=== PATIENT | male | born 1940 | race Caucasian/White ===

== ENCOUNTER 2016-11-22 10:30 | Inpatient (IN) | payer MEDICARE, BC ==
[~2016-11-22] VITALS: Ht 170.2 cm; Wt 85.5 kg
[~2016-11-22 10:30] MED LIST: CHOL10003 PO; CLOP75TA22 PO; CRANBERRY PO; DONE10TA30 PO; LISI-167 PO; MEMA28CA PO; OMEG1CAP6 PO; PHOSPHATIDYL SERINE PO; SALM1CAP2 PO; TURM500C7 PO; VITA150T PO; VITAMIN E PO; ZINC PO; [UNRECOGNIZED DRUG - OTHER] PO; [UNRECOGNIZED DRUG - OTHER] PO
[2016-11-22] MEDS ORDERED: SUCCINYLCHOLINE 20 MG/ML, 10ML ONE (10:39)
[2016-11-22] MEDS ORDERED: PROPOFOL 10 MG/ML, 20ML ONE (10:39)
[2016-11-22] MEDS ORDERED: CEFAZOLIN 1,000 MG ONE (10:39)
[2016-11-22] MEDS ORDERED: DEXAMETHASONE 4 MG/ML, 1ML ONE (10:39)
[2016-11-22] MEDS ORDERED: PHENYLEPHRINE 10 MG/ML ONE (10:39)
[2016-11-22] MEDS ORDERED: ONDANSETRON 2MG/ML, 2ML ONE (10:39)
[2016-11-22] MEDS ORDERED: PROTAMINE SULFATE 10 MG/ML, 5ML ONE (11:03)
[2016-11-22] MEDS ORDERED: PAPAVERINE 30 MG/ML, 2ML ONE (11:03)
[2016-11-22] MEDS ORDERED: HEPARIN 1,000 UNITS/ML, 10ML ONE (11:04)
[2016-11-22] MEDS ORDERED: THROMBIN 20,000 UNIT VIAL TP ONE (11:04)
[2016-11-22] MEDS ORDERED: LIDOCAINE/PF 1%, 30ML ONE (11:04)
[2016-11-22] MEDS ORDERED: BACITRACIN 50,000 UNIT ONE (11:04)
[2016-11-22] MEDS ORDERED: BUPIVACAINE/PF-EPI 0.5% 1:200K ONE (11:04)
[2016-11-22] MEDS ORDERED: LACTATED RINGERS 1,000 ML IV SCH (11:31)
[2016-11-22 11:34] VITALS: BP 157/89
[2016-11-22] MEDS ORDERED: FENTANYL PF 250 MCG/5ML ONE (12:25)
[2016-11-22] MEDS ORDERED: ACETAMINOPHEN 325 MG TABLET PO PRN ×2 (13:30→18:30)
[2016-11-22] MEDS ORDERED: hydrALAzine 20 MG/ML, 1ML IV PRN ×2 (13:30→18:30)
[2016-11-22] MEDS ORDERED: MIDAZOLAM 1 MG/ML, 2ML IV PRN (13:30)
[2016-11-22] MEDS ORDERED: ONDANSETRON 2MG/ML, 2ML IVPush PRN (13:30)
[2016-11-22] MEDS ORDERED: FENTANYL PF 100 MCG/2ML IV PRN (13:30)
[2016-11-22] MEDS ORDERED: HYDROmorphone 1 MG/ML, 1ML IV PRN (13:30)
[2016-11-22] MEDS ORDERED: PROMETHAZINE 25 MG/ML, 1ML IV PRN (13:30)
[2016-11-22] MEDS ORDERED: LABETALOL 5MG/ML, 20ML IV PRN (13:30)
[2016-11-22] MEDS ORDERED: OXYcodone 5 MG/5 ML ORAL.SOL UDC PO PRN (13:30)
[2016-11-22] MEDS ORDERED: ALBUTEROL/IPRATROPIUM 2.5MG/0.5MG, 3 ML NPPB PRN (13:30)
[2016-11-22] MEDS ORDERED: LABETALOL 5MG/ML, 20ML ONE (14:38)
[2016-11-22 17:50] VITALS: BP 123/66
[2016-11-22] MEDS ORDERED: morphine SULFATE 10 MG/ML, 1ML IV PRN (18:30)
[2016-11-22] MEDS ORDERED: LABETALOL 5MG/ML, 20ML IVPush PRN (18:30)
[2016-11-22] MEDS ORDERED: HYDROcodone/APAP 5/325 TABLET PO PRN (18:30)
[2016-11-22] MEDS: LACTATED RINGERS 1,000 ML IV SCH (18:30)
[2016-11-22] MEDS ORDERED: DIAZEPAM 5 MG TABLET ONE (19:37)
[2016-11-22 20:00] VITALS: BP 113/61
[2016-11-22] MEDS: CEFAZOLIN PMX 2GM/100ML 100 ML IVPB SCH (20:10)
[2016-11-22] MEDS ORDERED: LISINOPRIL 10 MG TABLET PO SCH (21:00)
[2016-11-22] MEDS ORDERED: DONEPEZIL 10 MG TABLET PO SCH (21:00)
[2016-11-23 00:05] VITALS: BP 121/73
[2016-11-23 04:15] VITALS: BP 120/76
[2016-11-23] MEDS: CEFAZOLIN PMX 2GM/100ML 100 ML IVPB SCH (04:18)
[2016-11-23] MEDS: LACTATED RINGERS 1,000 ML IV SCH (04:21)
[2016-11-23] MEDS ORDERED: ASPIRIN 81 MG TABLET EC PO SCH (06:00)
[2016-11-23 07:15] VITALS: BP 128/71
[2016-11-23] MEDS ORDERED: VIT C HOMEMEDPO SCH (09:00)
[2016-11-23] MEDS ORDERED: SUPER B COMPLEX HOMEMEDPO SCH (09:00)
[2016-11-23] MEDS ORDERED: PHOSPHATIDYL SERINE HOMEMEDPO SCH (09:00)
[2016-11-23] MEDS ORDERED: VITAMIN B COMPLEX HOMEMEDPO SCH (09:00)
[2016-11-23] MEDS ORDERED: MEMANTINE 28 MG HOMEMEDPO SCH (09:00)
[2016-11-23] MEDS ORDERED: CLOPIDOGREL 75 MG TABLET PO SCH (09:00)
[2016-11-23] MEDS ORDERED: CHOLECALCIFEROL 1,000 UNIT TABLET PO SCH (09:00)
[2016-11-23 13:32] VITALS: BP 124/69
[2016-11-23] MEDS ORDERED: HYDR-3240 PO (14:22)
== END 2016-11-23 14:50 | disposition home or self-care (01) | DRG 39 ==
LOC: ORIP 10:30 → 4NOR 17:45 → DCLOUNGE 11-23 14:13
PROVIDERS: ADMIT Surgery; ATTEND Surgery
PROC: 03CK0Z6 (ICD-10-PCS; 2016-11-22)
PROC: 03CM0ZZ Extirpation of Matter from Right External Carotid Artery, Open Approach (ICD-10-PCS; 2016-11-22)
PROC: 03UH0KZ Supplement Right Common Carotid Artery with Nonautologous Tissue Substitute, Open Approach (ICD-10-PCS; 2016-11-22)
PROC: 03UK0KZ Supplement Right Internal Carotid Artery with Nonautologous Tissue Substitute, Open Approach (ICD-10-PCS; 2016-11-22)
PROC: 03CH0Z6 (ICD-10-PCS; principal; 2016-11-22 12:30)
DX: I65.21 Occlusion and stenosis of right carotid artery (principal); R06.00 Dyspnea, unspecified; F03.90 Unspecified dementia, unspecified severity, without behavioral disturbance, psychotic disturbance, mood disturbance, and anxiety; E78.5 Hyperlipidemia, unspecified; Z86.73 Personal history of transient ischemic attack (TIA), and cerebral infarction without residual deficits; Z88.8 Allergy status to other drugs, medicaments and biological substances
CPT/HCPCS: C1729; J0690; J1100; J1644; J2405; J2704; J2720; J3010; J3490; C1768; J0330; J2370; J2440